=== PATIENT | female | born 1980 | race Two or more races ===

== ENCOUNTER 2017-09-05 06:19 | Emergency (ER) | payer MEDICAID ==
[~2017-09-05] VITALS: Ht 167.6 cm; Wt 116.9 kg
[~2017-09-05 06:19] MED LIST: ALBU6.7H INH; ALBU8.5H8 INH; AZIT250T PO; CYCL-1 PO; GUAI600T45 PO; HYDR-569 PO; LIDO700A5 TOP; NAPR-1144 PO; NAPR-1154 PO; PROM5SYR2 PO
[2017-09-05 06:40] VITALS: BP 123/78
[2017-09-05] MEDS ORDERED: HYDROcodone/acetaminophen 10/325mg tab PO ONE (07:00)
[2017-09-05] MEDS ORDERED: ketorolac trometh inj. 60 MG/2 ML VIAL IM ONE (07:00)
[2017-09-05] MEDS ORDERED: orphenadrine citrate 60mg/2ml inj. IM ONE (07:00)
[2017-09-05] MEDS ORDERED: HYDR-565 PO (07:17)
[2017-09-05] MEDS ORDERED: ORPH100T2 PO (07:17)
== END 2017-09-05 07:31 | disposition home or self-care (01) ==
LOC: ER 06:20
DX: M54.42 Lumbago with sciatica, left side (principal); G89.29 Other chronic pain; J45.909 Unspecified asthma, uncomplicated; Z79.899 Other long term (current) drug therapy
CPT/HCPCS: 96372; 99284; J1885; J2360

== ENCOUNTER 2018-10-24 06:03 | Emergency (ER) | payer MEDICAID ==
[~2018-10-24] VITALS: Ht 165.1 cm; Wt 108.3 kg
[~2018-10-24 06:03] MED LIST changes: +HYDR-4383 PO; -HYDR-569 PO; +ORPH100T2 PO
[2018-10-24 06:59] LABS: ALANINE AMINOTRANSFERASE 33 U/L (12-78); ALBUMIN/GLOBULIN RATIO 0.7 (1.1-1.5); ALKALINE PHOSPHATASE 49 IU/L (46-116); ANION GAP 7 (8-16); ASPARTATE AMINO TRANSFERASE 20 U/L (10-37); BILIRUBIN,TOTAL 0.2 MG/DL (0.1-1.0); BLOOD UREA NITROGEN 12 MG/DL (7-18); BUN/CREATININE RATIO 15.2 (6.6-38.0); CALCIUM 9.1 MG/DL (8.5-10.1); CHLORIDE 106 MMOL/L (99-107); CREATININE 0.79 MG/DL (0.40-0.90); GLUCOSE 96 MG/DL (70-104); POTASSIUM 3.3 MMOL/L (3.5-5.1); SODIUM 138 MMOL/L (135-145); TOTAL CARBON DIOXIDE 24.6 MMOL/L (24-32); TOTAL PROTEIN 7.2 G/DL (6.4-8.2); eGFR 81 ML/MIN
[2018-10-24 07:03] LABS: BASOPHILS # (AUTO) 0.1 X10'3 (0-0.2); BASOPHILS % (AUTO) 0.7 % (0-1); EOSINOPHILS # (AUTO) 0.4 X10'3 (0-0.9); EOSINOPHILS % (AUTO) 4.3 % (0-6); HEMATOCRIT 39.5 % (35.0-45.0); HEMOGLOBIN 13.3 g/dl (12.0-16.0); LYMPHOCYTES # (AUTO) 3.6 X10'3 (1.1-4.8); LYMPHOCYTES % (AUTO) 40.9 % (21-51); MEAN CORPUSCULAR HEMOGLOBIN 29.6 PG (27.0-31.0); MEAN CORPUSCULAR HGB CONC 33.7 g/dL (33.0-36.5); MEAN CORPUSCULAR VOLUME 87.8 FL (78-98); MEAN PLATELET VOLUME 8.7 FL (7.4-10.4); MONOCYTES # (AUTO) 0.5 X10'3 (0-0.9); MONOCYTES % (AUTO) 5.9 % (2-12); NEUTROPHILS # (AUTO) 4.3 X10'3 (1.8-7.7); NEUTROPHILS % (AUTO) 48.2 % (42-75); PLATELET COUNT 333 X10'3 (140-440); RED CELL DISTRIBUTION WIDTH 13.9 % (11.5-14.5); WHITE BLOOD COUNT 8.9 X10'3 (4.5-11.0)
--- NOTE | 2018-10-24 07:06 | NUR ---
Pt having ultrasound done at bedside.
[2018-10-24 07:22] LABS: URINE HCG NEGATIVE (NEG)
[2018-10-24 07:24] LABS: CLARITY,URINE SLIGHTLY CLOUDY (Clear); COLOR,URINE YELLOW (Yellow); GLUCOSE, URINE NEGATIVE (Neg); KETONES,URINE NEGATIVE (Neg); LEUKOCYTE ESTERASE ,URINE SMALL (Neg); NITRITES, URINE NEGATIVE (Neg); OCCULT BLOOD,URINE LARGE (Neg); PH,URINE 6.5 (4.8-8.0); PROTEIN,URINE NEGATIVE (Neg)
[2018-10-24 07:34] LABS: UA COLLECTION TYPE CLN CATCH MIDSTREAM
[2018-10-24 07:36] LABS: RBC,URINE 0-2 /HPF (0-2); WBC,URINE 0-4 /HPF (0-4)
[2018-10-24 07:37] LABS: BACTERIA,URINE FEW /HPF (Neg)
[2018-10-24] MEDS ORDERED: HYDROcodone/acetaminophen 5mg/325mg tablet PO ONE (07:50)
[2018-10-24] MEDS ORDERED: potassium Cl 20 mEq SR tablet PO ONE (07:50)
[2018-10-24 08:45] VITALS: BP 119/66
[2018-10-24 09:09] LABS: SQUAMOUS EPITHELIAL CELL,UR MODERATE /LPF (FEW)
== END 2018-10-24 08:46 | disposition home or self-care (01) ==
LOC: ER 06:03
DX: N93.9 Abnormal uterine and vaginal bleeding, unspecified (principal); R10.2 Pelvic and perineal pain; J45.909 Unspecified asthma, uncomplicated; G89.29 Other chronic pain; Z79.2 Long term (current) use of antibiotics; Z79.899 Other long term (current) drug therapy; Z90.49 Acquired absence of other specified parts of digestive tract; Z98.890 Other specified postprocedural states
CPT/HCPCS: 36415; 76830; 76856; 80053; 81001; 81025; 85025; 85610; 87088; 99284

== ENCOUNTER 2018-10-31 17:24 | Emergency (ER) | payer MEDICAID ==
[~2018-10-31] VITALS: Ht 167.6 cm; Wt 105.7 kg
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
--- NOTE | 2018-10-31 18:08 | NUR ---
PT STATES, HAS BEEN BLEEDING VAGINAL SINCE JUNE 2018. ABD PAIN AND ANXIETY WORSENED TODAY. SEEN HERE LAST WEDNESDAY
[2018-10-31] MEDS ORDERED: ondansetron/PF 4mg/2ml inj IV ONE (18:25)
[2018-10-31] MEDS ORDERED: normal saline 1000ML IV soln IVB ONE ×2 (18:25→20:10)
[2018-10-31 18:43] LABS: BASOPHILS % (AUTO) 0.6 % (0-1); EOSINOPHILS # (AUTO) 0.1 X10'3 (0-0.9); EOSINOPHILS % (AUTO) 1.3 % (0-6); HEMATOCRIT 41.6 % (35.0-45.0); HEMOGLOBIN 14.4 g/dl (12.0-16.0); LYMPHOCYTES # (AUTO) 2.4 X10'3 (1.1-4.8); LYMPHOCYTES % (AUTO) 32.9 % (21-51); MEAN CORPUSCULAR HEMOGLOBIN 30.8 PG (27.0-31.0); MEAN CORPUSCULAR HGB CONC 34.6 g/dL (33.0-36.5); MEAN CORPUSCULAR VOLUME 89.1 FL (78-98); MEAN PLATELET VOLUME 8.3 FL (7.4-10.4); MONOCYTES # (AUTO) 0.5 X10'3 (0-0.9); MONOCYTES % (AUTO) 6.5 % (2-12); NEUTROPHILS # (AUTO) 4.2 X10'3 (1.8-7.7); NEUTROPHILS % (AUTO) 58.7 % (42-75); PLATELET COUNT 304 X10'3 (140-440); RED BLOOD COUNT 4.66 X10'6 (4.20-5.60); RED CELL DISTRIBUTION WIDTH 14.4 % (11.5-14.5); WHITE BLOOD COUNT 7.2 X10'3 (4.5-11.0)
[2018-10-31] MEDS: morphine 4 MG/ML inj SYRINge IV PRN ×2 (18:44→19:27)
[2018-10-31 19:14] LABS: ALANINE AMINOTRANSFERASE 37 U/L (12-78); ALBUMIN 3.1 G/DL (3.4-5.0); ALBUMIN/GLOBULIN RATIO 0.7 (1.1-1.5); ALKALINE PHOSPHATASE 47 IU/L (46-116); ANION GAP 12 (8-16); ASPARTATE AMINO TRANSFERASE 33 U/L (10-37); BILIRUBIN,TOTAL 0.3 MG/DL (0.1-1.0); BLOOD UREA NITROGEN 11 MG/DL (7-18); BUN/CREATININE RATIO 16.7 (6.6-38.0); CALCIUM 9.2 MG/DL (8.5-10.1); CHLORIDE 105 MMOL/L (99-107); CREATININE 0.66 MG/DL (0.40-0.90); GLUCOSE 93 MG/DL (70-104); LIPASE 84 U/L (73-393); SODIUM 139 MMOL/L (135-145); TOTAL PROTEIN 7.7 G/DL (6.4-8.2); eGFR > 90 ML/MIN
[2018-10-31 19:16] LABS: POTASSIUM 4.3 MMOL/L (3.5-5.1)
[2018-10-31 19:24] LABS: URINE HCG NEGATIVE (NEG)
[2018-10-31 19:25] LABS: CLARITY,URINE Bloody (Clear); COLOR,URINE Red (Yellow); UA COLLECTION TYPE CLN CATCH MIDSTREAM
[2018-10-31 19:35] LABS: BACTERIA,URINE NONE SEEN /HPF (Neg); MUCUS STRANDS NONE SEEN /LPF (Neg); RBC,URINE TNTC /HPF (0-2); SQUAMOUS EPITHELIAL CELL,UR NONE SEEN /LPF (FEW); WBC,URINE 0-4 /HPF (0-4)
[2018-10-31] MEDS ORDERED: ketorolac trometh. 30mg/ml inj. IV ONE (20:00)
[2018-10-31] MEDS ORDERED: TRAM50TA2 PO (20:23)
[2018-10-31 20:47] VITALS: BP 124/86
== END 2018-10-31 20:49 | disposition home or self-care (01) ==
LOC: ER 17:25
DX: R07.89 Other chest pain (principal); R10.30 Lower abdominal pain, unspecified; J45.909 Unspecified asthma, uncomplicated; G89.29 Other chronic pain; Z90.49 Acquired absence of other specified parts of digestive tract; Z98.890 Other specified postprocedural states; Z79.899 Other long term (current) drug therapy
CPT/HCPCS: 36415; 71045; 74176; 80053; 81001; 81025; 83690; 84484; 85025; 93005; 96361; 96374; 96375; 96376; 99284; J1885; J2270; J2405; J7030

== ENCOUNTER 2019-02-02 08:30 | Day surgery (SDC) | payer MEDICAID ==
[2019-02-02] VITALS (16 sets, daily range): BP systolic 102–126; BP diastolic 59–78
[~2019-02-02] VITALS: Ht 167.6 cm; Wt 106.6 kg
[~2019-02-02 08:30] MED LIST changes: -ALBU6.7H INH; -ALBU8.5H8 INH; -AZIT250T PO; -CYCL-1 PO; -GUAI600T45 PO; -HYDR-4383 PO; -LIDO700A5 TOP; -NAPR-1144 PO; -NAPR-1154 PO; +NO HOME MEDS; -ORPH100T2 PO; -PROM5SYR2 PO; +famotidine 20mg tablet PO ONE; +ringers solution, lacted 1,000 ML IV SCH
[2019-02-02 10:00] LABS: BASOPHILS # (AUTO) 0.1 X10'3 (0-0.2); BASOPHILS % (AUTO) 0.7 % (0-1); EOSINOPHILS # (AUTO) 0.2 X10'3 (0-0.9); EOSINOPHILS % (AUTO) 2.4 % (0-6); LYMPHOCYTES # (AUTO) 2.1 X10'3 (1.1-4.8); MEAN CORPUSCULAR HEMOGLOBIN 29.2 PG (27.0-31.0); MEAN CORPUSCULAR HGB CONC 33.1 g/dL (33.0-36.5); MEAN CORPUSCULAR VOLUME 88.4 FL (78-98); MEAN PLATELET VOLUME 8.8 FL (7.4-10.4); MONOCYTES # (AUTO) 0.5 X10'3 (0-0.9); MONOCYTES % (AUTO) 6.3 % (2-12); NEUTROPHILS # (AUTO) 4.9 X10'3 (1.8-7.7); NEUTROPHILS % (AUTO) 63.6 % (42-75); PRE OP HEMATOCRIT 41.4 % (35.0-45.0); PRE OP HEMOGLOBIN 13.7 g/dL (12.0-16.0); PRE OP PLATELET COUNT 329 X10'3 (140-440); RED BLOOD COUNT 4.68 X10'6 (4.20-5.60); RED CELL DISTRIBUTION WIDTH 13.6 % (11.5-14.5)
[2019-02-02 10:09] LABS: ALBUMIN 3.6 G/DL (3.4-5.0); ALBUMIN/GLOBULIN RATIO 0.8 (1.1-1.5); ALKALINE PHOSPHATASE 58 IU/L (46-116); BLOOD UREA NITROGEN 12 MG/DL (7-18); BUN/CREATININE RATIO 15.8 (6.6-38.0); CALCIUM 9.2 MG/DL (8.5-10.1); CHLORIDE 102 MMOL/L (99-107); CREATININE 0.76 MG/DL (0.40-0.90); PRE OP ALT 39 U/L (30-65); PRE OP ANION GAP 10 (8-16); PRE OP AST 19 U/L (10-37); PRE OP BILIRUB, TOTAL 0.3 MG/DL (0.0-1.0); PRE OP GLUCOSE 99 MG/DL (70-104); PRE OP POTASSIUM 3.9 MMOL/L (3.4-5.1); PRE OP SODIUM 141 MMOL/L (135-145); TOTAL CARBON DIOXIDE 28.9 MMOL/L (24-32); TOTAL PROTEIN 7.9 G/DL (6.4-8.2); eGFR 85 ML/MIN
[2019-02-02 10:10] LABS: HCG SERUM QL NEGATIVE
[2019-02-02] MEDS ORDERED: ROPIVAcaine 0.5% (5mg/ml) 30ml vial ONE (10:17)
[2019-02-02] MEDS ORDERED: morphine 4 MG/ML inj SYRINge IV PRN ×2 (10:50)
[2019-02-02] MEDS ORDERED: proCHLORperazine 10 MG/2 ml inj IV PRN (10:50)
[2019-02-02] MEDS ORDERED: ondansetron/PF 4mg/2ml inj IV PRN (10:50)
[2019-02-02] MEDS ORDERED: ringers solution, lacted 1,000 ML IV SCH (10:50)
[2019-02-02] MEDS ORDERED: meperidine/PF 25mg/ml syringe IV PRN ×2 (10:50)
[2019-02-02] MEDS ORDERED: sevoflurane 250ml liquid IH ONE (11:45)
[2019-02-02] MEDS ORDERED: midazolam 2 mg/2 ml injection ONE (11:50)
[2019-02-02] MEDS ORDERED: fentaNYL/PF 50MCG/1 ML 2ML syringe ONE (11:50)
[2019-02-02] MEDS ORDERED: rocuronium 10mg/ml inj IV ONE (12:02)
[2019-02-02] MEDS ORDERED: LIDOcaine 2% (20mg/ml) 5ml vial ONE (12:02)
[2019-02-02] MEDS ORDERED: propofol inj 20 ML IV ONE (12:02)
[2019-02-02] MEDS ORDERED: neostigmine methylsulfate 1 MG/ML 10ml vial ONE (12:03)
[2019-02-02] MEDS ORDERED: glycopyrrolate 0.2mg/ml inj ONE (12:03)
[2019-02-02] MEDS ORDERED: dexamethasone sod phosphate 4mg/ml inj. ONE (12:03)
[2019-02-02] MEDS ORDERED: ondansetron/PF 4mg/2ml inj ONE (12:03)
[2019-02-02] MEDS ORDERED: ePHEDrine 50MG/ML INJ. ONE (13:26)
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
[2019-02-02] MEDS ORDERED: oxyCODONE/APAP 5-325mg tablet PO PRN (13:55)
[2019-02-02] MEDS: meperidine/PF 25mg/ml syringe IV PRN ×2 (14:03→14:24)
[2019-02-02] MEDS ORDERED: HYDROmorphone inj. 0.5 MG/0.5 ML DISP.SYRIN IV PRN ×2 (14:30)
[2019-02-02] MEDS ORDERED: acetaminophen 1,000mg/100ml IV 100 ML IV PRN (14:30)
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
== END 2019-02-02 17:00 | disposition home or self-care (01) ==
LOC: PAS 08:30
PROVIDERS: ATTEND Obstetrics & Gynecology
DX: Z30.2 Encounter for sterilization (principal); N92.0 Excessive and frequent menstruation with regular cycle; N73.6 Female pelvic peritoneal adhesions (postinfective); G47.33 Obstructive sleep apnea (adult) (pediatric); E66.9 Obesity, unspecified; Z68.37 Body mass index [BMI] 37.0-37.9, adult; Z90.49 Acquired absence of other specified parts of digestive tract; Z98.890 Other specified postprocedural states; Z87.891 Personal history of nicotine dependence; Z79.899 Other long term (current) drug therapy
CPT/HCPCS: 36415; 58563; 58661; 80053; 84703; 85025; 86885; 86900; 86901; 86920; A4264; J0131; J1100; J1170; J2001; J2175; J2250; J2270; J2405; J2704; J2710; J3010; J7030; J7120; A4355; A4618; A6250; A6258; A7000; J2795; J3490

== ENCOUNTER 2019-04-19 18:00 | Emergency (ER) | payer MEDICAID ==
[~2019-04-19] VITALS: Ht 165.1 cm; Wt 100.0 kg
[~2019-04-19 18:00] MED LIST changes: -famotidine 20mg tablet PO ONE; -ringers solution, lacted 1,000 ML IV SCH
[2019-04-19 18:24] VITALS: BP 134/99
[2019-04-19] MEDS ORDERED: CefTRIAXone 250MG IM Kit w/LIDOcaine IM ONE (18:30)
[2019-04-19 19:23] LABS: CLARITY,URINE SLIGHTLY CLOUDY (Clear); COLOR,URINE YELLOW (Yellow); GLUCOSE, URINE NEGATIVE (Neg); KETONES,URINE NEGATIVE (Neg); LEUKOCYTE ESTERASE ,URINE MODERATE (Neg); NITRITES, URINE NEGATIVE (Neg); OCCULT BLOOD,URINE MODERATE (Neg); PH,URINE 6.5 (4.8-8.0); PROTEIN,URINE NEGATIVE (Neg); URINE HCG NEGATIVE (NEG); UROBILINOGEN,URINE 0.2 E.U/dL (0.2-1.0)
[2019-04-19 19:25] LABS: UA COLLECTION TYPE CLN CATCH MIDSTREAM
[2019-04-19 19:35] LABS: BACTERIA,URINE FEW /HPF (Neg); RBC,URINE NONE SEEN /HPF (0-2); SQUAMOUS EPITHELIAL CELL,UR FEW /LPF (FEW); WBC,URINE 30-50 /HPF (0-4)
[2019-04-19] MEDS ORDERED: ondansetron 4mg rapidly disintigrating tab PO ONE (20:45)
[2019-04-19] MEDS ORDERED: ONDA4TAB6 PO (20:45)
[2019-04-19] MEDS ORDERED: PHEN-716 PO (20:45)
[2019-04-19] MEDS ORDERED: HYDROcodone/acetaminophen 10/325mg tab PO ONE (20:45)
[2019-04-19] MEDS ORDERED: sulfamethoxazole/trimethoprim DS (800/160mg) tablet PO ONE (20:45)
[2019-04-19] MEDS ORDERED: SULF1TAB49 PO (20:45)
== END 2019-04-19 20:58 | disposition home or self-care (01) ==
LOC: ER 18:00
DX: N39.0 Urinary tract infection, site not specified (principal); J45.909 Unspecified asthma, uncomplicated; G89.29 Other chronic pain; F41.9 Anxiety disorder, unspecified; Z90.49 Acquired absence of other specified parts of digestive tract; Z98.890 Other specified postprocedural states
CPT/HCPCS: 36415; 81001; 81025; 87088; 87186; 87491; 87591; 96372; 99283; J0696; 87077

== ENCOUNTER 2020-02-07 19:47 | Emergency (ER) | payer BC, MEDICAID ==
[~2020-02-07] VITALS: Ht 165.1 cm; Wt 118.5 kg
[~2020-02-07 19:47] MED LIST changes: +ONDA4TAB6 PO; +PHEN-716 PO
[2020-02-07] MEDS ORDERED: DIAZ5TAB PO (21:53)
[2020-02-07] MEDS ORDERED: diazepam 5mg tablet PO ONE (21:55)
[2020-02-07 21:58] VITALS: BP 133/79
== END 2020-02-07 22:00 | disposition home or self-care (01) ==
LOC: ER 20:00
DX: G89.29 Other chronic pain (principal); M54.42 Lumbago with sciatica, left side; M54.41 Lumbago with sciatica, right side; J45.909 Unspecified asthma, uncomplicated; F41.9 Anxiety disorder, unspecified; Z90.49 Acquired absence of other specified parts of digestive tract; Z98.890 Other specified postprocedural states; Z88.8 Allergy status to other drugs, medicaments and biological substances; Z79.899 Other long term (current) drug therapy
CPT/HCPCS: 99284

== ENCOUNTER 2025-03-14 14:35 | Emergency (ER) | payer BC, MEDICAID ==
[~2025-03-14] VITALS: Ht 165.1 cm; Wt 88.0 kg
[~2025-03-14 14:35] MED LIST changes: +DIAZ5TAB PO
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
[2025-03-14 16:18] VITALS: BP 146/82; PULSE 88; RESP 16; TEMP 98.6; O2SAT 98
== END 2025-03-14 16:20 ==
LOC: ER 14:35
DX: S06.0XAA Concussion with loss of consciousness status unknown, initial encounter (principal); F41.9 Anxiety disorder, unspecified; J45.909 Unspecified asthma, uncomplicated; G89.29 Other chronic pain; Z87.01 Personal history of pneumonia (recurrent); Z88.8 Allergy status to other drugs, medicaments and biological substances; Z90.49 Acquired absence of other specified parts of digestive tract; Z79.899 Other long term (current) drug therapy; V49.9XXA Car occupant (driver) (passenger) injured in unspecified traffic accident, initial encounter; Y93.89 Activity, other specified; Y92.89 Other specified places as the place of occurrence of the external cause; Y99.8 Other external cause status
CPT/HCPCS: 70450; 99284